=== PATIENT | female | born 1955 | race Caucasian/White ===

== ENCOUNTER 2025-09-03 05:23 | Observation (INO) ==
--- NOTE | 2025-07-30 13:06 | PAT Medication Instructions ---
Medication Instructions Date of Service July 30, 2025 Home Medications aspirin 81 mg capsule 81 mg PO DAILY budesonide-formoterol HFA 160 mcg-4.5 mcg/actuation aerosol inhaler 2 puff inhalation Q12H PRN celecoxib 100 mg capsule (Celebrex) 100 mg PO BID ergocalciferol (vitamin D2) 1,250 mcg (50,000 unit) capsule (Vitamin D2) 1,250 mcg PO WK ezetimibe 10 mg tablet 10 mg PO QAM furosemide 40 mg tablet 40 mg PO BID PRN glimepiride 4 mg tablet 4 mg PO BID insulin glargine 100 unit/mL (3 mL) subcutaneous pen (Lantus Solostar U-100 Insulin) 50 unit subcut HS metoprolol tartrate 25 mg tablet 25 - 50 mg PO UD nitroglycerin 0.4 mg sublingual tablet (Nitrostat) 0.4 mg sublingual UD PRN pantoprazole 40 mg tablet,delayed release (Protonix) 40 mg PO QAM rosuvastatin 40 mg tablet (Crestor) 40 mg PO HS tirzepatide 12.5 mg/0.5 mL subcutaneous pen injector (Mounjaro) 12.5 mg subcut WK STOP 7 days before surgery tirzepatide 12.5 mg/0.5 mL subcutaneous pen injector (Mounjaro) 12.5 mg subcut WK Continue as directed metoprolol tartrate 25 mg tablet 25 - 50 mg PO UD nitroglycerin 0.4 mg sublingual tablet (Nitrostat) 0.4 mg sublingual UD PRN(if needed) ASK your surgeon for instructions celecoxib 100 mg capsule (Celebrex) 100 mg PO BID ASK your prescriber and surgeon aspirin 81 mg capsule 81 mg PO DAILY DO NOT take the morning of surgery ergocalciferol (vitamin D2) 1,250 mcg (50,000 unit) capsule (Vitamin D2) 1,250 mcg PO WK furosemide 40 mg tablet 40 mg PO BID PRN glimepiride 4 mg tablet 4 mg PO BID Take morning of surgery With a small sip of water, OTHERWISE NOTHING TO EAT OR DRINK AFTER MIDNIGHT: budesonide-formoterol HFA 160 mcg-4.5 mcg/actuation aerosol inhaler 2 puff inhalation Q12H PRN(if needed) ezetimibe 10 mg tablet 10 mg PO QAM pantoprazole 40 mg tablet,delayed release (Protonix) 40 mg PO QAM Take evening before surgery budesonide-formoterol HFA 160 mcg-4.5 mcg/actuation aerosol inhaler 2 puff inhalation Q12H PRN(if needed) furosemide 40 mg tablet 40 mg PO BID PRN(if needed) glimepiride 4 mg tablet 4 mg PO BID insulin glargine 100 unit/mL (3 mL) subcutaneous pen (Lantus Solostar U-100 Insulin) 50 unit subcut HS rosuvastatin 40 mg tablet (Crestor) 40 mg PO HS Other Notes If you have any questions please call us at [phone] or [phone] or [phone] or [phone]
--- NOTE | 2025-08-07 12:57 | Anesthesiology Consultation ---
Date of Service August 07, 2025 Assessment & Plan (1) Encounter for pre-operative examination: Chart Review Chart Review: Acceptable Risk for Surgery (pending upcoming routine LDCT 08/09/25, surgeon ordered vasc visit 08/15/25 and surgeon ordered PCP preop 08/20/25) and Patient seen in Pre Admission Testing - Awaiting Low Dose lung CT scan scheduled 08/09/25 (RADHA Maurice) - Awaiting vascular clearance 08/15/25 (Dr Armenta- [facility]) - Awaiting PCP clearance scheduled 08/20/25 (Lu Wiseman PA-C- [facility]) - Check BSG AM DOS - Patient informed by nursing to stop Mounjaro 7 days prior to surgery. Last dose of Mounjaro scheduled 08/24/25. Will be off Mounjaro x 10 days prior to DOS on 09/03/25 - Patient is NOT an ideal OPJ candidate (currently 23 hour obs) Per PAT appt on 08/07/25, no recent illness/disease exposures, illness related symptoms, or recent illness/disease positive tests. Will leave to surgeon's discretion if preop Covid testing needed Patient seen by RADHA velásquez 07/31/25= "seen for follow up... unable to use her CPAP... asthma... continue albuterol as needed... JOANIE... intolerance to CPAP... continue with LDCT scheduled 08/09/25... Surgical clearance: Based on recent PFTs, patient's exercise capacity, and minimal exertional dyspnea, I believe she would be at a low risk of pulmonary complications related to general anesthesia associated with knee surgery.... Cardiology office visit 07/22/25= "seen for cardiac evaluation... HTN well contr olled... HLD... continue statin... Considered low to moderate cardiac risk for right total knee replacement with Dr. Silvestre at [facility]. She is considered medically optimized from a CV standpoint and able to complete at least 4 METS of activity without ischemic symptoms. Recommend to continue aspirin during surgery..." Teaching & Discussion Pre-Anesthesia Teaching/Discussion Notes: Instructed NPO after midnight before surgery,except medications with 15 cc of water. Medication instructions provided according to the PAT guidelines. History Surgery Operation Date: 09/03/25 07:00 Proposed Procedures p Right Total Knee Arthroplasty - Jn Estuardo Silvestre MD Height/Weight Height: 5 ft 5 in Weight: 103.6 kg Allergies Allergy/AdvReac Type Severity Reaction Status Date / Time No Known Allergies Allergy Verified 07/30/25 08:25 Medications Home Medications Medication Instructions Recorded Confirmed Last Taken aspirin 81 mg capsule 81 mg PO DAILY 07/30/25 07/30/25 Unknown budesonide-formoterol HFA 160 2 puff inhalation Q12H PRN sob 07/30/25 07/30/25 Unknown mcg-4.5 mcg/actuation aerosol inhaler celecoxib 100 mg capsule (Celebrex) 100 mg PO BID 07/30/25 07/30/25 Unknown ergocalciferol (vitamin D2) 1,250 1,250 mcg PO WK 07/30/25 07/30/25 Unknown mcg (50,000 unit) capsule (Vitamin D2) ezetimibe 10 mg tablet 10 mg PO QAM 07/30/25 07/30/25 Unknown furosemide 40 mg tablet 40 mg PO BID PRN Edema 07/30/25 07/30/25 Unknown glimepiride 4 mg tablet 4 mg PO BID 07/30/25 07/30/25 Unknown insulin glargine 100 unit/mL (3 50 unit subcut HS 07/30/25 07/30/25 Unknown mL) subcutaneous pen (Lantus Solostar U-100 Insulin) metoprolol tartrate 25 mg tablet 25 - 50 mg PO UD 07/30/25 07/30/25 Unknown nitroglycerin 0.4 mg sublingual 0.4 mg sublingual UD PRN Chest Pain 07/30/25 07/30/25 Unknown tablet (Nitrostat) pantoprazole 40 mg tablet,delayed 40 mg PO QAM 07/30/25 07/30/25 Unknown release (Protonix) rosuvastatin 40 mg tablet (Crestor) 40 mg PO HS 07/30/25 07/30/25 Unknown tirzepatide 12.5 mg/0.5 mL 12.5 mg subcut WK 07/30/25 07/30/25 Unknown subcutaneous pen injector (Mounjaro) Past Medical History Medical History (Updated 08/08/25 @ 09:53 by Joellen Cramer PA-C) Asthma - rare use of inhaler - follows with Dr. Pulliam ([facility]) CAD (coronary artery disease) s/p stent to RCA in 2016 s/p CABG (NAQVI to LAD 08/2017) s/p "protected LM stent in 09/2017 after the bypass grafting" cath 2023 showed mild residual CAD with patent stents, NAQVI-LAD small, atretic with MDD Chronic diastolic (congestive) heart failure follows with dr. tracy mccoy cardio (sees in [place]) DDD (degenerative disc disease), lumbar Diabetes mellitus Dyspnea on exertion chronic- stable GERD (gastroesophageal reflux disease) well controlled and stable Hx of myocardial infarction (2015) STEMI- RCA- 2 stents- nadine- follows with dr. molina Hyperlipidemia Hypertension Pt denies - states metoprolol is for CAD PAD (peripheral artery disease) Drug Coat Balloon angioplasty of the right SFA Nov 2023 Sleep apnea can't tolerate cpap Exercise / Class Metabolic Activity III < 4 Walking/Shop/Light housework (one flight of stairs - no chest pain or SOB- goes slow on all fours; uses cane for ambulation in public ) Past Surgical History Surgical History History of arthroplasty of knee right - ? Hx of appendectomy Hx of CABG (2016) switchback- CABG x2- follows with dr. molina/nadine ([facility]) Hx of cardiac catheterization (2016) 2016-SD- [place]- 2 stents- follows with cardio dr. tracy mccoy/ [place] office 2017- [facility] - flown to [place] for cabg Hx of cholecystectomy Hx of colonoscopy Hx of heart artery stent (2015) SD- [place]- 2 stents- follows with cardio dr. tracy mccoy Hx of hernia repair x 2 - abdominal Hx of tooth extraction all teeth Hx of total hysterectomy Hx of tubal ligation Past Anesthesia History No Hx of Anesthesia Complications and No Family Hx of Anesthesia Complications History of PONV No Hx of PONV and No Hx of Motion Sickness Social History Smoking Status: Former smoker Do You Dip or Chew Tobacco: No Smoking End Date: quit 9 years ago Hx Alcohol Use: No Hx Substance Use: No substance use type: does not use Review of Systems Patient denies chest pain, shortness of breath at rest, cough, wheezing, palpitations. No hx of seizures, stroke. No hx of blood clots or blood transfusions Physical Exam Vital Signs VITALS BP 114/74 P 70 TEMP 97.8 SP02 97% RES 16P Constitutional no acute distress ENMT Mouth: no TMJ clicking Thyromental Distance: < 3.5 Finger Breadths (3.0) Mallampati Class: III Full dentures top and bottom Neck + limited neck extension Respiratory normal respiratory effort; no respiratory distress Auscultation: lungs clear to auscultation bilaterally; no wheezes Cardiovascular Rate/Rhythm: regular rate and regular rhythm Heart Sounds: no murmur Vessels: no carotid bruit Heart sounds diminished throughout Musculoskeletal Spine: + pain with cervical ROM (mild) Extremities: extremities normal to inspection Psychiatric Orientation: alert Lab Results Anesthesia Preop Results Results Anesthesia Widget: WBC 9.25 K/ul (4.8-10.8) 08/07/25 Hgb 12.8 g/dl (12.0-16.0) 08/07/25 Hct 38.3 % (37.0-47.0) 08/07/25 Plt 205 K/uL (130-400) 08/07/25 Na 140 mmol/L (136-145) 08/07/25 K 5.1 mmol/L (3.5-5.1) 08/07/25 Cl 104 mmol/L (98-107) 08/07/25 CO2 31 mmol/L (21-32) 08/07/25 BUN 15 mg/dl (6-23) 08/07/25 Creat 0.92 mg/dl (0.6-1.2) 08/07/25 Glucose Level 135 mg/dl (70-99(Fasting)) H 08/07/25 PT 11.0 Seconds (9.0-12.0) 08/07/25 PTT 28 Seconds (21-31) 08/07/25 INR 1.0 (0.9-1.1) 08/07/25 HA1c 7.5 % (4.5-5.6) H 08/07/25 Urine Color Dark Yellow 08/07/25 Urine Appearance Clear (Clear) 08/07/25 Urine pH 5.0 (4.5-7.5) 08/07/25 Urine Specific [place] 1.038 (1.000-1.030) H 08/07/25 Urine Protein 1+ (Negative) H 08/07/25 Urine Glucose (UA) Trace (Negative) H 08/07/25 Urine Ketones Trace (Negative) H 08/07/25 Urine Blood Negative (Negative) 08/07/25 Urine Nitrite Negative (Negative) 08/07/25 Urine Bilirubin Negative (Negative) 08/07/25 Urine Urobilinogen Negative (Negative) 08/07/25 Urine Leukocyte Esterase Trace (Negative) H 08/07/25 Urine WBC (Auto) 0-5 /hpf (0-5) 08/07/25 Urine RBC (Auto) 0-2 /hpf (0-2) 08/07/25 Urine Hyaline Casts (Auto) 3-5 /lpf (0-2) H 08/07/25 Urine Epithelial Cells (Auto) 11-20 /hpf (0-2) H 08/07/25 Urine Bacteria (Auto) 2+ (None Seen) H 08/07/25 Blood Type O Positive 08/07/25 Antibody Screen NEGATIVE 08/07/25 Testing Laboratory Results Bacteria noted in UA- surgeon's office informed- will leave to surgeon's discretion on how to proceed Electrocardiogram Date: 08/07/24 SR with 1st degree AVB at 69bpm Possible inferior infarct, age undetermined (EKG similar in appearance by personal visual inspection to EKG done at cardio clearance appt 07/22/25) Chest X-Ray Date: 08/07/25 Findings: + NAD Echocardiogram Date: 02/24/23 EF: 55% LV Function: normal RWMA: + none Other Findings: + diastolic dysfunction (Grade I ) Valvular Disease: + no significant valvular disease Stress Test Date: 05/14/24 Type: nuclear Lexiscan stress EKG Was nondiagnostic for myocardial ischemia Myocardial perfusion imaging: There is no transient ischemic dilation of the left ventricle during stress. There is a moderate-sized, mild, reversible defect involving the basal, mid, and apical anterior shea, consistent with ischemia in the distribution of the left anterior descending coronary artery Gated SPECT: The calculated LVEF is 64% Recommendations: Cardiac cath (Patient had subsequent cardiac cath 05/15/24- see below) Cardiac Catheterization Date: 05/15/24 LM = patent stent without any in-stent restenosis LAD = ostial calcific 30% stenosis mid segment has diffuse 30% stenosis. Mid LAD receives and HAYDEN, LAD downstream and upstream from the NAQVI anastomosis site is patent with mild diffuse irregularities without flow-limiting lesions Left circumflex = mid diffuse irregularity without flow-limiting lesions RCA = patent stent in distal segment without any in-stent restenosis, rest of RCA has mild diffuse irregularity NAQVI to LAD, small vessel, did not mature, has diffuse irregularities without flow-limiting lesions Postoperative Diagnosis: Residual nonobstructive epicardial coronary artery disease. Patent stent in the LM artery without any in-stent restenosis, patient stent in distal RCA without any in -stent restenosis, patent small sized NAQVI to mid LAD Other Testing Carotid doppler 08/05/25= <50% stenosis of bilateral ICAs. Bilateral vertebral arteries patient and antegrade flow.
[2025-09-03] MEDS: LR 60ML/HR IV SCH (05:54)
[2025-09-03] MEDS: CeleBREX 200 MG CAP PO SCH ×2 (05:56→20:30)
[2025-09-03] MEDS: ACETAMINOPHEN 500 MG TAB PO SCH ×2 (05:56→13:12)
[2025-09-03] MEDS: LR 500ML BOLUS, THEN 15ML/HR IV SCH (05:56)
[2025-09-03] MEDS ORDERED: MIDAZOLAM HCL 1 MG/ML 2ML VIAL ONE (06:21)
[2025-09-03] MEDS ORDERED: LIDOCAINE 2% 2 ML VIAL/AMP(20MG/ML) INFIL ONE (06:21)
[2025-09-03] MEDS ORDERED: PROPOFOL IV EMULSION 10 MG/ML 100 ML VIAL IV ONE (06:26)
[2025-09-03] MEDS ORDERED: BUPIVACAINE 0.5 % 5 MG/1 ML PF 10ML VIAL ONE (06:33)
[2025-09-03] MEDS ORDERED: BUPIVACAINE 0.25% PF 30 ML VIAL ONE (06:33)
[2025-09-03] MEDS ORDERED: ONDANSETRON INJ 2 MG/ML 2 ML VIAL IV PRN ×2 (06:38→11:08)
[2025-09-03] MEDS ORDERED: ATROPINE SULFATE 0.1 MG/ML 10ML SYR IV PRN (06:38)
--- NOTE | 2025-09-03 06:41 | History & Physical Bridge Note ---
Date of Service September 03, 2025 History & Physical Bridge Note I have examined the patient, reviewed the History & Physical and in the interval since the performance of the History & Physical I have noted the following changes of clinical significance: no changes noted
[2025-09-03] MEDS: TRANEXAMIC ACID 1,000 MG **IV Pre-op IV SCH (06:48)
[2025-09-03] MEDS ORDERED: DexMEDEtomidine HCL IV 100 MCG/ML VIAL IV ONE (07:17)
[2025-09-03] MEDS ORDERED: ePHEDrine sulfate 50 MG/5 ML SYR ONE (07:39)
[2025-09-03] MEDS: ORTHO JOINT ANESTHETIC ONE (07:44)
[2025-09-03] MEDS: ROPIV 0.5% 246mg, Ketorolac 30mg, EPINEPHrine 0.5mg in NSS INFIL SCH (09:03)
--- NOTE | 2025-09-03 09:36 | Post Operative Brief Note ---
Immediate Post Op Note Date of Surgery September 03, 2025 Pre & Post Diagnosis Operation Date: 09/03/25 07:00 Pre-Op Diagnosis: Right Knee Degenerative Joint Disease Post-Op Diagnosis: Right Knee Degenerative Joint Disease I identified the patient and participated in the time-out.: Yes Procedure Operation Date: 09/03/25 07:00 Actual Procedures p Right Total Knee Arthroplasty(Right) - Jn Silvestre MD Surgeon Jn Silvestre MD Marketing Project Lead Estuardo Granados PA-C (No fellow avail) Estimated Blood Loss 50 Findings Consistent with Post-Op Diagnosis Fluids 1000 cc Specimens right knee Contents Anesthesia Type MAC Spinal Regional Complications none
--- NOTE | 2025-09-03 09:37 | Operative Report ---
Post Operative Report Pre & Post Diagnosis Operation Date: 09/03/25 07:00 Pre-Op Diagnosis: Right Knee Degenerative Joint Disease Post-Op Diagnosis: Right Knee Degenerative Joint Disease I identified the patient and participated in the time-out.: Yes Procedure Operation Date: 09/03/25 07:00 Actual Procedures p Right Total knee replacement, imageless computer assisted navigation (Right) - Jn Silvestre MD Surgeon Jn Silvestre MD Manager Of Procurement Estuardo Granados PA-C (No fellow avail) Estimated Blood Loss 50 Findings See Below Examined Under Anesthesia: ROM -- There was 10 degrees to 100 degrees of flexion Ligamentous examination -- revealed stable Ahsan, posterior drawer, varus and valgus stress at 10 and 30 degrees. [place] Grade IV changes of medial compartment (extensively worn medial tibial plateau with sclerosis & macerated medial meniscus, grade II-III changes in the patellofemoral and lateral compartments. Fluids 1000 cc Specimens Right Knee Contents Anesthesia Type MAC Spinal Regional Complications none Indications This is a 69-year-old female who has clinical and radiographic findings consistent with osteoarthritis of the right knee. I recommended that a right total knee replacement be performed. The patient understands the risks of surgery, which include but not limited to: bleeding, infection, re-operation, damage to nerves and arteries, continued knee pain, knee stiffness, DVT, and . The patient understands all these instructions and explanations, all his questions have been satisfactorily addressed, and the patient has elected to proceed. Informed consent was signed. Description of Procedure IMPLANTS: 1. Femur: Triathlon #4 right PS. 2. Tibia: Triathlon #4 [place] with 12 x 50 mm stem. 3. Insert: Triathlon #4 x 13 mm PS X3 poly. 4. Patella: Triathlon A29 x 9 mm X3 poly. 5. Palacos cement. A DONIS Granados is assisting with positioning, retracting, and closure due to fellow not available. Procedure: The patient was taken to the Operating Room and placed in the supine position after spinal and adductor canal nerve block was administered. My initials and a multidisciplinary time-out were used to identify the right leg as the correct operative limb. A tourniquet was placed high on the thigh. Prior to the incision, 2 grams of intravenous Ancef were given. One g of TXA was given pre-operatively and another after the tourniquet was released. The right leg was then prepped and draped in a standard sterile fashion. An Esmarch was used to exsanguinate the leg, and the tourniquet was inflated to 250 mmHg. The planned mid-line 20 cm incision was created exposing the extensor mechanism. The medial parapatellar arthrotomy was made and the patella was everted. The patella was addressed first. It was prepared by reaming from 24 mm down to 15 mm. An A29 button was found to fit best. The peg holes were made in the standard fashion. The femur was addressed next and using computer assisted OrthoAlign with 3 degrees of flexion and 0 degrees of valgus, removing 10 mm in the standard fashion for the distal cut. The cut was made and after making the Tibial cut, releaseing the MCL, and checking the balancing using OrthoAlign Lantern, Flexion/Extension gap 3 mm laterally & 4 mm medially. The Lantern was set to 4 which closely matched the posterior referencing guide. The 4-in-1 cutting block for a size 4 femur was placed. These cuts and the cuts to place the box were made in the standard fashion. The tibia cut with using imageless computer assisted OrthoAlign, taking 9 mm from the lateral high side.A #4 Tibial baseplate fit well. A trial with a 13 mm spacer showed excellent stability in both flexion and extension, with good ligament balance, and thumbs free patellar tracking. Range of motion of 0-120 degrees. The tibial baseplate was prepped for the keel and stem. A stem was used due to some areas of soft bone, to avoid subsidence. All components were removed. 90 ml of total knee cocktail were injected into the soft tissues and periosteum. All surfaces were copiously irrigated prior to placement of the components. The Tibial baseplate followed by femoral component were cemented in place and a 13mm trial placed. Next, the patellar button was placed using the same cement. Once the cement had cured, the range of motion and stability were unchanged. The 13 mm X3 poly was placed. Again, the range of motion and stability were unchanged. The tourniquet was deflated. Hemostasis was obtained. Another 1g TXA was given. The extensor mechanism was closed with 1-0 Vicryl and 0 Stratafix with the knee bent approximately 60 degrees in a standard fashion. The peritenon and deep fascia was closed with 2-0 Vicryl. The subcutaneous layer was closed with 3-0 Vicryl. The skin was closed with Zipline and shield. The limb was cleaned and dried. 4x4 dressing was placed over top followed by ABDs, sterile Webril, and a foot to thigh Flako bandage. The patient was then transferred to the Recovery Room in stable condition. The sponge and needle counts were correct. POST-OP INSTRUCTIONS: The patient will be WBAT. The patient will be admitted to the hospital. Complete 24-hour course antibiotics. Labs will be obtained during the stay. DVT prophylaxis will include aspirin for 6 weeks, TEDs, and mechanical foot pu mps. The dressing will be changed, postop day #2-3, and covered with a Silverlon dressing. I attest to the content of the Intraoperative Record and any orders documented therein. Any exceptions are noted below.
--- NOTE | 2025-09-03 10:17 | Operative Report ---
Post Operative Report Pre & Post Diagnosis Operation Date: 09/03/25 07:00 Pre-Op Diagnosis: Right Knee Degenerative Joint Disease Post-Op Diagnosis: Right Knee Degenerative Joint Disease I identified the patient and participated in the time-out.: Yes Procedure Operation Date: 09/03/25 07:00 Actual Procedures p Right Total Knee Arthroplasty(Right) - Jn Silvestre MD Surgeon Jn Silvestre MD Neon Molder Estuardo Granados PA-C (No fellow avail) Estimated Blood Loss 50 Findings Consistent with Post-Op Diagnosis Specimens Bone and soft tissue Description of Procedure I was present for the entire case. I assisted with patient positioning, prepping, draping, retraction, suctioning, hardware management, wound closure, dressing application. Please refer to Dr. Silvestre's procedure note for full details. I attest to the content of the Intraoperative Record and any orders documented therein. Any exceptions are noted below.
--- NOTE | 2025-09-03 10:27 | Anesthesiology Progress Note ---
Date of Service September 03, 2025 Anesthesia Post Procedure Vital Signs Vital Signs: Temp Pulse Resp BP Pulse Ox O2 Del Method O2 Flow Rate 09/03/25 10:20 66 16 119/51 L 95 Room Air 09/03/25 10:10 69 18 122/57 L 99 Oxymask 6 09/03/25 10:00 71 17 125/58 L 99 Oxymask 6 09/03/25 09:51 36.3 C L 76 18 119/67 97 Oxymask 6 09/03/25 05:40 36.7 C 80 20 150/60 H 97 Room Air Pain Intensity Right Knee: Pain Intensity: 7 Transfer of Care Handoff Completed per policy Notes Mental Status: alert / awake / arousable Patient Amnestic to Procedure: Yes Nausea / Vomiting: adequately controlled Pain: adequately controlled Airway Patency, RR, SpO2: stable & adequate BP & HR: stable & adequate Hydration State: stable & adequate Neuraxial Anesthesia: was administered and sensory block is resolving Anesthetic Complications: no major complications apparent and Pt Satisfied with anesthetic care
[2025-09-03] MEDS ORDERED: diphenhydrAMINE Capsule 25 MG CAP PO PRN (11:08)
[2025-09-03] MEDS ORDERED: NALOXONE HCL 0.4 MG/1 ML VIAL/CARP IV PRN (11:08)
[2025-09-03] MEDS ORDERED: BUDESONIDE/FORMOTEROL FUMARATE 160/4.5 60 PUFFS/INHALER INH PRN (11:08)
[2025-09-03] MEDS ORDERED: PHARMACY GLYCEMIC MGMT CONSULT PRN (11:08)
[2025-09-03] MEDS ORDERED: MAGNESIUM HYDROXIDE SUSP 30 ML UDC PO PRN (11:08)
[2025-09-03] MEDS ORDERED: NITROGLYCERIN SL 0.4 MG/TAB TAB SL PRN (11:08)
[2025-09-03] MEDS ORDERED: FUROSEMIDE 40 MG TAB PO PRN (11:08)
[2025-09-03] MEDS ORDERED: METOCLOPRAMIDE HCL INJ 5 MG/ML 2 ML VIAL IV PRN (11:08)
--- NOTE | 2025-09-03 11:10 | XRay Report ---
TWO VIEWS RIGHT KNEE CLINICAL HISTORY: Postoperative examination. FINDINGS: AP and crosstable lateral portable views of the right knee are obtained. A right knee arthr oplasty is in near anatomic alignment. There has been undersurface remodeling of the patella. No acut e fracture is seen. Soft tissue edema and subcutaneous gas surrounding the knee are expected postoper ative findings. There is atherosclerotic calcification of the popliteal artery. IMPRESSION: Expected postoperative changes status post right knee arthroplasty. No acute fracture is seen. ACT 112: Negative or not required by law. Electronically signed by: Reyes Benitez M.D. 09/03/2025 11:09 AM
[2025-09-03] MEDS: SODIUM CHLORIDE 0.9% 1,000 ML IV SCH (11:27)
[2025-09-03] MEDS ORDERED: GLUCAGON FOR INJ 1 MG VIAL SQ PRN (11:30)
[2025-09-03] MEDS ORDERED: CARBOHYDRATES FOR HYPOGLYCEMIA PO PRN (11:30)
[2025-09-03] MEDS ORDERED: GLUCOSE 40% GEL 15 GM TUBE PO PRN (11:30)
[2025-09-03] MEDS ORDERED: DEXTROSE 50% 50 ML SYRINGE IV PRN (11:30)
[2025-09-03] MEDS ORDERED: GLUCOSE 10 TAB/TUBE PO PRN (11:30)
--- NOTE | 2025-09-03 11:49 | Hospitalist Consultation ---
"Date of Consultation September 03, 2025 Assessment & Plan (1) Right knee DJD: (2) Status post total right knee replacement: (3) CAD (coronary artery disease): (4) Chronic diastolic (congestive) heart failure: (5) PAD (peripheral artery disease): (6) Diabetes mellitus: Plan Aydee is a pleasant 69-year-old woman with PMH of CAD with RCA stent in 2015, CABG with NAQVI to LAD in 2016, chronic diastolic CHF, PAD s/p DCB angioplasty of the right SFA in November 2023, diabetes, JOANIE intolerant to CPAP, DJD, asthma, GERD. She presented for right total knee arthroplasty with Dr. Silvestre on 09/03. Hospital medicine was consulted for medical management of comorbidities. #Right knee DJD | S/p right total knee arthroplasty - Defer pain regimen, perioperative antibiotics, DVT prophylaxis, activity level, discharge planning to primary team - Reviewed operative report and EBL listed as 50 cc. Monitor CBC with a.m. labs - Saturating well on room air postoperatively. Continue to encourage incentive spirometer use Q1HWA #CAD | Chronic diastolic CHF | PAD - Continue metoprolol, rosuvastatin, ezetimibe, Lasix as needed - Recommend resuming aspirin when okay per primary team #[id number] recent A1c 7.5% in July 2025. Pharmacy glycemic consult in place by primary team will defer insulin regimen to pharmacists #Asthmacontinue albuterol inhaler as needed for wheezing/SOB. Patient reports she has not needed to use this for several months #GERDcontinue Protonix #Vitamin D deficiencycontinue ergocalciferol 1250 mcg weekly outpatient #OSAintolerant of CPAP Hospital medicine will continue to follow. Please reach out with any questions or concerns. Daughter updated at bedside. Reviewed outpatient records. Supervising Physician Co-Signing Physician Notes Patient was seen and examined independently I discussed the case with Lenore Alexandre PA-C 69-year-old woman with PMH of CAD with RCA stent in 2016, CABG with NAQVI to LAD in 2016, chronic diastolic CHF, PAD s/p DCB angioplasty of the right SFA in November 2023, diabetes, JOANIE intolerant to CPAP, DJD, asthma, GERD. She presented for right total knee arthroplasty with Dr. Silvestre on 09/03. Hospital medicine was consulted for medical management of comorbidities. I reviewed pertinent past medical social family history and also the plan of care and agree with the plan of care. coronary artery disease is stable diabetic care is from glycemic management team Any exceptions will be noted below History of Present Illness Reason for Consultation: s/p right total knee arthroplasty w comorbidities Requesting Physician: Jn Silvestre MD Attending Physician: Jn Silvestre MD History of Present Illness Aydee is a pleasant 69-year-old woman with PMH of CAD with RCA stent in 2015, CABG with NAQVI to LAD in 2016, PAD s/p DCB angioplasty of the right SFA in November 2023, diabetes, DJD, asthma, GERD. She presented for right total knee arthroplasty with Dr. Silvestre on 09/03. Per review of operative report, EBL was listed as 50 cc, and there were no complications noted. Per review of patient's vitals postop, she has been stable. Only recent medication change was her glipizide being discontinued due to overnight hypoglycemia. She has JOANIE but does not tolerate CPAP. She does not use any supplemental O2 overnight. Patient reports that her pain is 8/10 at time of consult. She describes it as an achy pain extending down her lateral RLE from her knee down to her gillette. She is starting to have some motor function return in her RLE. She reports she is eating and drinking okay since the procedure. She has voided postoperatively without difficulty. She has not passed gas or had a BM postoperatively yet. She denies any lightheadedness, headache, chest pain, SOB, cough, abdominal pain, N/V/D, changes in urinary/bowel habits, or numbness or tingling down the legs. She denies any additional complaints or concerns at this time. Allergies Allergy/AdvReac Type Severity Reaction Status Date / Time No Known Allergies Allergy Verified 09/03/25 05:28 Home Medications Medication Instructions Recorded Confirmed Type aspirin 81 mg capsule 81 mg PO DAILY 07/30/25 09/03/25 History budesonide-formoterol HFA 160 2 puff inhalation Q12H PRN sob 07/30/25 09/03/25 History mcg-4.5 mcg/actuation aerosol inhaler celecoxib 100 mg capsule (Celebrex) 100 mg PO BID 07/30/25 09/03/25 History ergocalciferol (vitamin D2) 1,250 1,250 mcg PO WK 07/30/25 09/03/25 History mcg (50,000 unit) capsule (Vitamin D2) ezetimibe 10 mg tablet 10 mg PO QAM 07/30/25 09/03/25 History furosemide 40 mg tablet 40 mg PO BID PRN Edema 07/30/25 09/03/25 History insulin glargine 100 unit/mL (3 50 unit subcut HS 07/30/25 09/03/25 History mL) subcutaneous pen (Lantus Solostar U-100 Insulin) metoprolol tartrate 25 mg tablet 25 - 50 mg PO UD 07/30/25 09/03/25 History nitroglycerin 0.4 mg sublingual 0.4 mg sublingual UD PRN Chest Pain 07/30/25 09/03/25 History tablet (Nitrostat) pantoprazole 40 mg tablet,delayed 40 mg PO QAM 07/30/25 09/03/25 History release (Protonix) rosuvastatin 40 mg tablet (Crestor) 40 mg PO HS 07/30/25 09/03/25 History tirzepatide 12.5 mg/0.5 mL 12.5 mg subcut WK 07/30/25 09/03/25 History subcutaneous pen injector (Mounjaro) Patient History Medical History (Updated 09/03/25 @ 11:37 by Lenore Alexandre PA-C) Asthma - rare use of inhaler - follows with Dr. Pulliam ([facility]) DDD (degenerative disc disease), lumbar Sleep apnea can't tolerate cpap GERD (gastroesophageal reflux disease) well controlled and stable Dyspnea on exertion chronic- stable Hyperlipidemia Hx of myocardial infarction (2015) STEMI- RCA- 2 stents- [place]- follows with dr. molina Hypertension Pt denies - states metoprolol is for CAD Surgical History (Updated 09/03/25 @ 11:37 by Lenore Alexandre PA-C) Hx of CABG (2016) [place]- CABG x2- follows with dr. molina/nadine ([place] office) Hx of heart artery stent (2015) PA- [place]- 2 stents- follows with cardio dr. tracy mccoy Hx of cardiac catheterization (2017) 2016-[place]- [place]- 2 stents- [facility] - flown to [place] for cabg Hx of colonoscopy Hx of tooth extraction all teeth Hx of hernia repair x 2 - abdominal History of arthroplasty of knee right - ? Hx of total hysterectomy Hx of tubal ligation Hx of cholecystectomy Hx of appendectomy Social History Smoking Status: Former smoker Tobacco Type: Cigarettes Smoking End Date: quit 9 years ago; Second Hand Exposure: No; Do You Dip or Chew Tobacco: No; Tobacco Cessation Education Requested by Patient: No Hx Alcohol Use: No Hx Substance Use: No Preferred Language: Pakistani Communication Ability: Effective Ophthalmic Surgeon Required: No Beliefs That Will Affect Care: None Current Living Situation: Alone Other Information That Helps Us Care for You: No Feels Safe at Home: Yes Safety Concerns: Feels Safe At This Time Assistive Devices: Cane, Denture - Upper, Denture - Lower and Glasses Review of Systems Review of Systems: All systems reviewed & are unremarkable except as noted in HPI & below Musculoskeletal: + joint pain (Right knee) Physical Exam Physical Exam: General: No acute distress, nondiaphoretic, well-developed, well-nourished. Class II obesity. Skin: Warm, dry. No rashes or peripheral edema noted. Cardiac: Regular rate and rhythm without murmurs gallops or rubs. Pulm: Clear to auscultation bilaterally without wheezes, rales or rhonchi. Normal respiratory effort. 99% on room air. Abdominal: Soft, nontender, nondistended. Neuro: A&O x3. No focal neurological deficits. Results & Data Results & Data Vital Signs (Past 12 Hours) Vital Signs Temp Pulse Pulse Resp BP Pulse Ox O2 Del Method 09/03/25 11:29 97.3 F L 67 16 109/64 97 Room Air 09/03/25 11:00 97.5 F L 71 18 120/71 96 Room Air 09/03/25 10:30 97.7 F 73 18 119/53 L 96 Room Air 09/03/25 10:20 66 16 119/51 L 95 Room Air 09/03/25 10:10 69 18 122/57 L 99 Oxymask 09/03/25 10:00 71 17 125/58 L 99 Oxymask 09/03/25 09:51 97.3 F L 76 18 119/67 97 Oxymask 09/03/25 05:40 98.1 F 80 20 150/60 H 97 Room Air O2 Flow Rate 09/03/25 11:29 10/21/25 11:00 09/03/25 10:30 09/03/25 10:20 09/03/25 10:10 6 09/03/25 10:00 6 09/03/25 09:51 6 09/03/25 05:40 PG Care Time/CCT Total # of Minutes Spent Total Time Spent with Patient: Total time spent is greater than 50% in coordination of care (as documented) at patient's floor/unit and/or counseling patient: Coding Level of Care Code 47612 IN/OBS CONSULT LVL 4,60M Diagnoses Right knee DJD M17.11 Status post total right knee replacement Z96.651 CAD (coronary artery disease) I25.10 Chronic diastolic (congestive) heart failure I50.32 PAD (peripheral artery disease) I73.9 Diabetes mellitus E11.9"
[2025-09-03] MEDS: METOPROLOL TARTRATE 25 MG TAB PO SCH ×2 (11:53→20:40)
[2025-09-03] MEDS ORDERED: ALBUTEROL HFA 8 GM INHALER INH PRN (12:24)
[2025-09-03] MEDS: INSULIN ASPART PER UNIT CHARGE SC SCH (12:31)
--- NOTE | 2025-09-03 13:10 | Pharmacy Report ---
Pharmacy Glycemic Short Note 2 - Date of Service September 03, 2025 - Glycemic Short BSG Results (Last 24 hours): 09/03/25 09/03/25 09/03/25 05:38 09:54 11:35 POC Glucose 118 H 109 H 100 H OUTPATIENT ANTIDIABETIC REGIMEN: * Lantus 50 units SQ HS * Tirzepatide 12.5mg SQ Weekly * A1c 7.5% 08/07/25 ASSESSMENT: * 69 yo s/p RTKA, no steroids received preop or post op - scheduled for dexamethasone 10mg IV x1 tomorrow morning. * Will reduce home basal dose as patient is receiving NovoLog for correctional and prandial coverage. * Will need basal order and tightening of NovoLog tomorrow to cover steroid effects. * Type 2 DM diet. PLAN FOR INPATIENT GLYCEMIC CONTROL: * Hold outpatient diabetes medications * Basal insulin * Lantus 30-50 units SQ HS ( 30 units BSG < 140, 40 units BSG 140-180, 50 units BSG > 180) * Bolus insulin * NovoLog per scale ACHS or Q6hrs while NPO * Goal Range: Low 110 mg/dL - High 140 mg/dL * Correction Factor: 25 mg/dL/unit * Nutritional / Prandial insulin per carb ratio of 1 unit per 8 grams CHO consumed
[2025-09-03] MEDS: Scopolamine CHECK PATCH PLACEMENT SCH (15:48)
--- NOTE | 2025-09-03 16:52 | Orthopedic Progress Note ---
Date of Service September 03, 2025 Assessment & Plan (1) Right knee DJD: Plan: POD #0 s/p Right TKA, doing as well as expected. Resume diet. WBAT with walker. OOB to chair. Continue pain control. Check labs tomorrow. DVT prophylaxis: TEDs 3 weeks, foot pumps while in hospital, Eliquis 2.5 mg BID for 6 weeks. PT/OT. D/C planning. Dressing to be changed POD 2-3 to Silverlon type dressing. Admission and Anticipated Discharge Date Admission Date: September 03, 2025 Subjective Having some right knee pain. Physical Exam Physical Exam: RLE: : BCR < 2 sec. Sensation to light touch unchanged distally. Wiggling ankle and toes. Calf soft and non-tender. Dressing is clean, dry, intact. Able to perform straight leg raise. Results & Data Vital Signs (Past 12 Hours) Vital Signs Temp Pulse Pulse Resp BP Pulse Ox O2 Del Method 09/03/25 15:54 36.6 C 62 16 153/76 H 98 Room Air 09/03/25 13:58 63 18 146/77 H 98 Room Air 09/03/25 13:06 36.4 C L 60 18 146/79 H 99 Room Air 09/03/25 11:54 36.4 C L 67 16 113/66 97 Room Air 09/03/25 11:29 36.3 C L 67 16 109/64 97 Room Air 09/03/25 11:00 Room Air 09/03/25 11:00 36.4 C L 71 18 120/71 96 Room Air 09/03/25 10:30 36.5 C 73 18 119/53 L 96 Room Air 09/03/25 10:20 66 16 119/51 L 95 Room Air 09/03/25 10:10 69 18 122/57 L 99 Oxymask 09/03/25 10:00 71 17 125/58 L 99 Oxymask 09/03/25 09:51 36.3 C L 76 18 119/67 97 Oxymask 09/03/25 05:40 36.7 C 80 20 150/60 H 97 Room Air O2 Flow Rate 09/03/25 15:54 09/03/25 13:58 09/03/25 13:06 09/03/25 11:54 09/03/25 11:29 09/03/25 11:00 09/03/25 11:00 09/03/25 10:30 09/03/25 10:20 09/03/25 10:10 6 09/03/25 10:00 6 09/03/25 09:51 6 09/03/25 05:40 Diagnostic Findings TWO VIEWS RIGHT KNEE CLINICAL HISTORY: Postoperative examination. FINDINGS: AP and crosstable lateral portable views of the right knee are obtained. A right knee arthroplasty is in near anatomic alignment. There has been undersurface remodeling of the patella. No acute fracture is seen. Soft tissue edema and subcutaneous gas surrounding the knee are expected postoperative findings. There is atherosclerotic calcification of the popliteal artery. IMPRESSION: Expected postoperative changes status post right knee arthroplasty. No acute fracture is seen.
[2025-09-03] MEDS: ASCORBIC ACID 500 MG TAB PO SCH (17:29)
[2025-09-03] MEDS: FERROUS GLUCONATE 324 MG TAB PO SCH (18:04)
[2025-09-03] MEDS: DOCUSATE SODIUM 100 MG CAP PO SCH (20:28)
[2025-09-03] MEDS: SENNA 8.6 MG TAB PO SCH (20:28)
[2025-09-03] MEDS: ROSUVASTATIN CALCIUM 20 MG TAB PO SCH (20:29)
[2025-09-03] MEDS: LANTUS PER UNIT CHARGE SC SCH (21:13)
[2025-09-04] MEDS: HYDROmorphone INJ 0.5 MG/0.5 ML SYR IV PRN (00:12)
--- NOTE | 2025-09-04 07:20 | Hospitalist Progress Note ---
Date of Service September 04, 2025 Assessment & Plan Admission and Anticipated Discharge Date Admission Date: September 03, 2025 Results & Data Results & Data Vital Signs (Past 12 Hours) Vital Signs Temp Pulse Resp BP BP Pulse Ox O2 Del Method 09/04/25 04:00 36.6 C 71 18 131/60 95 Room Air 09/04/25 00:00 36.5 C 67 18 116/65 96 Room Air 09/03/25 20:42 36.7 C 65 18 129/60 100 Room Air 09/03/25 20:38 65 129/60 PG Care Time/CCT Total # of Minutes Spent Total Time Spent with Patient: Total time spent is greater than 50% in coordination of care (as documented) at patient's floor/unit and/or counseling patient: Coding
[2025-09-04 07:52] LABS: Hematocrit (blood only) 30.3 % (37.0-47.0); Hemoglobin 10.2 g/dl (12.0-16.0); Mean Corpuscular Hemoglobin 29.6 pg (25.0-34.0); Mean Corpuscular Volume 87.8 fL (80.0-100.0); Platelet Count 140 K/uL (130-400); RDW Standard Deviation 46.0 fL (36.4-46.3); Red Blood Count 3.45 M/uL (4.20-5.40); White Blood Count 8.46 K/ul (4.8-10.8)
[2025-09-04 08:07] LABS: Anion Gap 5.0 (3-11); Blood Urea Nitrogen 15.0 mg/dl (6-23); Calcium 8.4 mg/dl (8.6-10.3); Carbon Dioxide 28.0 mmol/L (21-32); Chloride 104.0 mmol/L (98-107); Creatinine Clr Calc Pharmacy 70.4 ml/min; Glucose 140.0 mg/dl (70-99(Fasting)); Potassium 4.0 mmol/L (3.5-5.1); Sodium 137.0 mmol/L (136-145)
[2025-09-04] MEDS: APIXABAN 2.5 MG TAB PO SCH (08:09)
[2025-09-04] MEDS: MULTIVITAMIN TAB PO SCH (08:09)
[2025-09-04] MEDS: EZETIMIBE 10 MG TAB PO SCH (08:09)
[2025-09-04] MEDS: dexAMETHasone 10 MG in SYRINGE 0 ML IV SCH (08:11)
[2025-09-04] MEDS: LANTUS PER UNIT CHARGE SC ONE (09:31)
--- NOTE | 2025-09-04 10:34 | Orthopedic Progress Note ---
Date of Service September 04, 2025 Assessment & Plan (1) Right knee DJD: Plan: POD #1 s/p Right TKA, doing as well as expected. Resume diet. WBAT with walker. OOB to chair. Continue pain control. H/H stable DVT prophylaxis: TEDs 3 weeks, foot pumps while in hospital, Eliquis 2.5 mg BID for 6 weeks. PT/OT. Plan for discharge to home health later today if safe in PT/OT. Follow up as scheduled on Tuesday for dressing to be changed to Silverlon type dressing. Admission and Anticipated Discharge Date Admission Date: September 03, 2025 Supervising Physician Co-Signing Physician Notes I, Dr. Silvestre, saw and examined the patient and agree with the above findings described in the note by my PA. I discussed the plan on of care I developed with my PA. Subjective Patient is doing well sitting in her chair. She has been up with physical therapy but not Occupational Therapy yet. She states she is a little unsteady on her feet until she "gets her bearings". She then can ambulate in the retana with her walker. She states that she is set up with hospital bed and a bedside commode. Her daughter lives near her and plans to be with her and network director in the next few days at her house. She does feel that she is able to go home today. No significant pain but the pain she does have is controlled with oxycodone. She states she gets a little lightheaded when she moves too quickly or stands too quickly but that resolves within a few seconds. Physical Exam Musculoskeletal: Exam focused on her right lower extremity: Postoperative dressings are clean, dry and intact. She is able independently straight leg raise her right leg. Calf is supple and nontender. Full ankle range of motion with normal strength. Distal sensation is normal. 2+ dorsalis pedis and posterior tibial p ulses. Capillary refill is brisk. Results & Data Vital Signs (Past 12 Hours) Vital Signs Temp Pulse Resp BP Pulse Ox O2 Del Method 09/04/25 07:38 36.8 C 70 16 120/78 98 Room Air 09/04/25 04:00 36.6 C 71 18 131/60 95 Room Air 09/04/25 00:00 36.5 C 67 18 116/65 96 Room Air Laboratory Results 09/04/25 09/04/25 09/04/25 Range/Units 07:54 07:20 00:06 WBC 8.46 (4.8-10.8) K/ul RBC 3.45 L (4.20-5.40) M/uL Hgb 10.2 L (12.0-16.0) g/dl Hct 30.3 L (37.0-47.0) % MCV 87.8 (80.0-100.0) fL MCH 29.6 (25.0-34.0) pg MCHC 33.7 (32.0-36.0) g/dL RDW Std Deviation 46.0 (36.4-46.3) fL RDW Coeff of Domo 14.3 (11.5-14.5) % Plt Count 140 (130-400) K/uL MPV 11.3 (9.4-12.4) fL Sodium 137 (136-145) mmol/L Potassium 4.0 (3.5-5.1) mmol/L Chloride 104 (98-107) mmol/L Carbon Dioxide 28 (21-32) mmol/L Anion Gap 5 (3-11) BUN 15 (6-23) mg/dl Creatinine 0.88 (0.6-1.2) mg/dl Est Cr Clr Drug Dosing 70.4 ml/min eGFR 70.22 BUN/Creatinine Ratio 17.0 (10-20) Glucose 140 H (70-99(Fasting)) mg/dl POC Glucose 146 H 74 (70-99) mg/dl Calcium 8.4 L (8.6-10.3) mg/dl 09/03/25 09/03/25 09/03/25 Range/Units 21:09 16:12 11:35 WBC (4.8-10.8) K/ul RBC (4.20-5.40) M/uL Hgb (12.0-16.0) g/dl Hct (37.0-47.0) % MCV (80.0-100.0) fL MCH (25.0-34.0) pg MCHC (32.0-36.0) g/dL RDW Std Deviation (36.4-46.3) fL RDW Coeff of Domo (11.5-14.5) % Plt Count (130-400) K/uL MPV (9.4-12.4) fL Sodium (136-145) mmol/L Potassium (3.5-5.1) mmol/L Chloride (98-107) mmol/L Carbon Dioxide (21-32) mmol/L Anion Gap (3-11) BUN (6-23) mg/dl Creatinine (0.6-1.2) mg/dl Est Cr Clr Drug Dosing ml/min eGFR BUN/Creatinine Ratio (10-20) Glucose (70-99(Fasting)) mg/dl POC Glucose 87 78 100 H (70-99) mg/dl Calcium (8.6-10.3) mg/dl Diagnostic Findings Knee X-Ray 09/03/25 10:15 TWO VIEWS RIGHT KNEE CLINICAL HISTORY: Postoperative examination. FINDINGS: AP and crosstable lateral portable views of the right knee are obtained. A right knee arthroplasty is in near anatomic alignment. There has been undersurface remodeling of the patella. No acute fracture is seen. Soft tissue edema and subcutaneous gas surrounding the knee are expected postoperative findings. There is atherosclerotic calcification of the popliteal artery. IMPRESSION: Expected postoperative changes status post right knee arthroplasty. No acute fracture is seen. ACT 112: Negative or not required by law. Electronically signed by: Reyes Benitez M.D. 09/03/2025 11:09 AM
--- NOTE | 2025-09-04 10:52 | Discharge Summary ---
Date of Service September 04, 2025 Discharge Data Consultations 08/30/25 12:02 Consult Hospitalist Routine Procedures Performed Operation Date: 09/03/25 07:00 Actual Procedures p Right Total Knee Arthroplasty(Right) - Jn Silvestre MD Hospital Course (1) Right knee DJD: Patient was kept in observation at [facility] after undergoing an elective right total knee arthroplasty on September 03, [address] Silvestre. Her surgery was performed with spinal anesthesia, peripheral nerve block and local anesthetic. She tolerated the procedure well without any intraoperative complications. She was given 2 g of IV Ancef for preoperative surgical prophylaxis which was continued for 24 hours after surgery. She was also given 1 g of IV TXA preoperatively and also postoperatively for bleeding prophylaxis. In the recovery room she had x-rays of her right knee which showed a stable prosthesis without evidence of hardware failure or fracture. She was allowed out of bed, weight-bear as tolerated with the assistance of a walker. Physical therapy and Occupational Therapy consults were placed. Her home medications w ere continued. She was given a regular diet. Pain medication was prescribed and included IV Dilaudid, oxycodone, Tylenol and Celebrex. She was started on SANDRA stockings, AVN pulse boots and Eliquis 2.5 mg p.o. twice daily which will be continued for 6 weeks after surgery for DVT prophylaxis. She was a bowel regimen which included Colace, Maalox and Senokot as needed. She was also started on vitamin C and iron for anemia. On postoperative day 1 she was safe out of bed with physical therapy and Occupational Therapy. Her pain was well- controlled on oral pain medication. She was seen and evaluated by case management and home health arrangements were made. She was discharged to her home in stable condition on September 04, 2025. Follow-up appointments have been scheduled and discharge instructions were reviewed.
[2025-09-04 11:39] VITALS: BP 108/70; PULSE 68; RESP 18; TEMP 98.1; O2SAT 96
[2025-09-06] MEDS ORDERED: Scopolamine REMOVE TRANSDERM PATCH ONE (08:00)
[2025-09-09] MEDS ORDERED: ERGOCALCIFEROL 1250 MCG (50,000 UNITS) CAP PO SCH (09:00)
== END 2025-09-04 14:21 | disposition home or self-care (01) ==
LOC: 3N 05:23 → ASU 05:23